=== PATIENT | female | born 1965 | race Two or more races ===

== ENCOUNTER 2020-08-27 13:37 | Outpatient (CLI) | payer OTHER ==
[~2020-08-27] VITALS: Ht 165.1 cm; Wt 113.4 kg
[2020-08-27 13:58] VITALS: BP 140/6
--- NOTE | 2020-08-27 14:45 | Consultation ---
DATE OF CONSULTATION: 08/27/2020 CONSULTING PHYSICIAN: Jorge Luis Garduno MD. CHIEF COMPLAINT: Blood in stool. PAST MEDICAL HISTORY: 1. Diabetes. 2. Hypertension. 3. Hypercholesteremia. PAST SURGICAL HISTORY: History of eardrum rupture. MEDICATIONS: Please see medication reconciliation list. FAMILY HISTORY: Diabetes. SOCIAL HISTORY: The patient denies any tobacco, alcohol, or drug abuse. ALLERGIES: No known drug allergies. REVIEW OF SYSTEMS: Negative. PHYSICAL EXAMINATION: VITAL SIGNS: Temperature 97.3, blood pressure is 140/66, pulse is 76, respirations 20. HEENT: Normocephalic, atraumatic. Sclerae anicteric. NECK: Supple. No evidence of obvious lymphadenopathy. CARDIOVASCULAR: Regular rate and rhythm. Plus S1 and S2. LUNGS: Clear to auscultation bilaterally. ABDOMEN: Positive bowel sounds. Soft and nontender. No rebound. No guarding. No peritoneal sign. EXTREMITIES: No cyanosis, no clubbing, no edema. ASSESSMENT AND PLAN: This is a 54-year-old female with blood in the stool. PLAN: Needs endoscopy and colonoscopy. We will schedule as soon as authorization is obtained. Jorge Luis Garduno M.D. DR: SHERRELL JOB#: [id number] CC:
[2020-08-28] MEDS ORDERED: FAMOTIDINE20 MG ORAL (11:15)
[2020-08-28] MEDS ORDERED: METFORMIN HCL500 M1 ORAL (11:15)
[2020-08-28] MEDS ORDERED: HYZAAR 50-12.51 EACH ORAL (11:15)
[2020-08-28] MEDS ORDERED: ATORVASTATIN CA10 MG ORAL (11:15)
[2020-08-28] MEDS ORDERED: ASPIRIN EC81 MG ORAL (11:15)
== END 2020-08-27 15:37 | disposition home or self-care (01) ==
LOC: PAN 13:37
DX: K92.1 Melena (principal); E11.9 Type 2 diabetes mellitus without complications; I10 Essential (primary) hypertension; E78.00 Pure hypercholesterolemia, unspecified
CPT/HCPCS: G0463

== ENCOUNTER 2020-11-03 08:49 | Outpatient (CLI) | payer OTHER ==
[~2020-11-03 08:49] MED LIST: ASPIRIN EC81 MG ORAL; ATORVASTATIN CA10 MG ORAL; FAMOTIDINE20 MG ORAL; HYZAAR 50-12.51 EACH ORAL; METFORMIN HCL500 M1 ORAL
[2020-11-03 09:00] VITALS: BP 154/86
[2020-11-03] MEDS ORDERED: COLACE100 MG ORAL (09:02)
--- NOTE | 2020-11-03 09:38 | General Progress Note ---
Subjective ROS Limited/Unobtainable: Yes Allergies: Coded Allergies: No Known Allergies (Unverified , 08/27/20) Objective Last 24 Hour Vital Signs Date Time Temp Pulse Resp B/P (MAP) Pulse Ox O2 Delivery O2 Flow Rate FiO2 11/03/20 09:00 97.4 77 16 154/86 96 General Appearance: alert EENT: normal ENT inspection Neck: supple Cardiovascular: normal rate Respiratory/Chest: lungs clear Abdomen: normal bowel sounds, non tender, soft Extremities: non-tender Assessment/Plan Assessment/Plan: s/p EGD and colonoscopy HP neg gastritis hemorrhoids add align and miralax RTC prn Jorge Luis Garduno MD Nov 03, 2020 09:38
== END 2020-11-03 10:49 | disposition home or self-care (01) ==
LOC: PAN 08:49
DX: K64.9 Unspecified hemorrhoids (principal); K29.70 Gastritis, unspecified, without bleeding
CPT/HCPCS: 99212